=== PATIENT | female | born 1960 | race African-American/Black ===

== ENCOUNTER → 2019-06-03 18:41 | Outpatient (ROUT) | payer OTHER, SELFPAY ==
[2019-06-03 19:30] LABS: Blood Urea Nitrogen 14 mg/dL (7-17); Calcium 9.2 mg/dL (8.4-10.2); Carbon Dioxide 27 mmol/L (22-32); Chloride 107 mmol/L (98-107); Estimated Glomerular Filt Rate 56.6 mL/min (>60); Glucose 101 mg/dL (80-110); HEMOLYSIS 24 (0-50); Potassium 4.4 mmol/L (3.4-5.1); Sodium 141 mmol/L (137-145)
[2019-06-03 23:19] LABS: Free T4, Direct Thyroxine 0.51 ng/dL (0.78-2.19)
== END ==
PROVIDERS: Visit Provider Internal Medicine
DX: E03.9 Hypothyroidism, unspecified (principal); I10 Essential (primary) hypertension
CPT/HCPCS: 80048; 84439; 84443

== ENCOUNTER → 2019-09-11 15:50 | Outpatient (CLI) | payer OTHER, SELFPAY ==
[2019-09-11 17:39] LABS: TSH w/ Reflex to FT4 2.58 uIU/mL (0.47-4.68)
== END ==
PROVIDERS: PCP Internal Medicine; Referring Provider Internal Medicine; Visit Provider Internal Medicine
DX: E03.9 Hypothyroidism, unspecified (principal)
CPT/HCPCS: 36415; 84443

== ENCOUNTER → 2019-12-30 16:39 | Outpatient (CLI) | payer OTHER, MEDICAID, SELFPAY ==
--- NOTE | 2019-12-30 | DI.RAD.S_ITS ---
PROCEDURE: XR KNEE RT 1TO2V INDICATIONS: KNEE PAIN TECHNIQUE: 2 views of the knee were acquired. COMPARISON: None. FINDINGS: Bones: No fractures or dislocations. No suspicious bony lesions. Moderate to severe medial compartment osteoarthritis. Moderate lateral and patellofemoral compartment osteoarthritis. Soft tissues: Small joint effusion. No suspicious soft tissue calcifications. IMPRESSION: Tricompartmental osteoarthritis. Dictated by: Mayuri Joel MD, PhD on 12/31/2019 at 14:51 Approved by: Mayuri Joel MD, PhD on 12/31/2019 at 14:54
--- NOTE | 2019-12-30 | DI.RAD.S_ITS ---
PROCEDURE: XR KNEE LT 1TO2V INDICATIONS: KNEE PAIN TECHNIQUE: 3 views of the knee were acquired. COMPARISON: None. FINDINGS: Bones: No fractures or dislocations. No suspicious bony lesions. Moderate medial and patellofemoral compartment osteoarthritis. Mild lateral compartment osteoarthritis. Soft tissues: No joint effusion. No suspicious soft tissue calcifications. IMPRESSION: Tricompartmental osteoarthritis. Dictated by: Mayuri Joel MD, PhD on 12/31/2019 at 14:54 Approved by: Mayuri Joel MD, PhD on 12/31/2019 at 14:54
== END ==
PROVIDERS: PCP Internal Medicine; Referring Provider Internal Medicine; Visit Provider Internal Medicine
DX: M25.562 Pain in left knee (principal); M25.561 Pain in right knee; M17.0 Bilateral primary osteoarthritis of knee
CPT/HCPCS: 73560

== ENCOUNTER → 2020-06-15 16:35 | Outpatient (CLI) | payer OTHER, MEDICAID, SELFPAY ==
[2020-06-15 17:10] LABS: Uric Acid 4.6 mg/dL (2.5-6.2)
[2020-06-15 18:18] LABS: Free T4, Direct Thyroxine 0.34 ng/dL (0.78-2.19)
== END ==
PROVIDERS: PCP Internal Medicine; Referring Provider Internal Medicine; Visit Provider Internal Medicine
DX: M25.561 Pain in right knee (principal); E03.9 Hypothyroidism, unspecified
CPT/HCPCS: 36415; 84439; 84443; 84550

== ENCOUNTER → 2021-01-07 10:33 | Outpatient (CLI) | payer OTHER, MEDICAID, SELFPAY ==
--- NOTE | 2021-01-07 | DI.MG.S_ITS ---
BILATERAL DIGITAL SCREENING MAMMOGRAM 3D/2D WITH CAD: 01/07/2021 CLINICAL: Routine screening. Comparison is made to exams dated: 04/29/2017 mammogram and 12/20/2015 mammogram - [facility]. The tissue of both breasts is predominantly fatty. Current study was also evaluated with a Computer Aided Detection (CAD) system. No significant masses, calcifications, or other findings are seen in either breast. There has been no significant interval change. IMPRESSION: NEGATIVE There is no mammographic evidence of malignancy. A 1 year screening mammogram is recommended. This exam was interpreted at Station ID: [id number]. NOTE: For mammograms, a report in lay terms will be sent to the patient. Approximately 15% of breast malignancies will not be visualized mammographically. In the management of a palpable breast mass, a negative mammogram must not discourage biopsy of a clinically suspicious lesion. Electronically Signed By: Rene Stoddard M.D., jr/kobe:01/09/2021 08:10:52 letter sent: Normal Exam ACR BI-RADS Category 1: Negative [id number]
== END ==
PROVIDERS: PCP Internal Medicine; Referring Provider Internal Medicine; Visit Provider Internal Medicine
DX: Z12.31 Encounter for screening mammogram for malignant neoplasm of breast (principal)
CPT/HCPCS: 77063; 77067

== ENCOUNTER 2021-01-15 13:50 | Emergency (ER) | payer OTHER, MEDICAID, SELFPAY ==
[2021-01-15 14:16] VITALS: BP 181/78; PULSE 66; RESP 16; TEMP 36.6; O2SAT 99; BMI 50.5
--- NOTE | 2021-01-15 14:20 | DI.RAD.S_ITS ---
PROCEDURE: XR SHOULDER RT MIN 2V INDICATIONS: fall TECHNIQUE: 3 the views of the shoulder were acquired. COMPARISON: [facility], CR, XR KNEE RT 3V, 01/15/2021, 14:25. FINDINGS: Bones: No fractures or dislocations. No suspicious bony lesions. Visualized ribs appear intact. Age-appropriate bony degenerative changes are seen. Note is made of lateral downsloping of the acromion. Soft tissues: No suspicious soft tissue calcifications. The visualized lung demonstrates an unremarkable appearance. IMPRESSION: No acute abnormality is seen by plain film. Lateral downsloping of the acromion can be seen, which can predispose to impingement syndrome. If it would be helpful for clinical management decision making, please consider a dedicated, scheduled shoulder MRI for further evaluation (assuming that there is no contraindication). Dictated by: Suleman Cristobal M.D. on 01/15/2021 at 14:05 Approved by: Suleman Cristobal M.D. on 01/15/2021 at 14:06
--- NOTE | 2021-01-15 14:20 | DI.RAD.S_ITS ---
PROCEDURE: XR KNEE RT 3V INDICATIONS: fall TECHNIQUE: 3 views of the knee were acquired. COMPARISON: [facility], CR, XR KNEE LT 1TO2V, 12/30/2019, 16:35. [facility], CR, XR SHOULDER RT MIN 2V, 01/15/2021, 14:25. [facility], CR, XR KNEE RT 1TO2V, 12/30/2019, 16:35. FINDINGS: Bones: No fractures or dislocations. No suspicious bony lesions. There is moderate to severe medial femorotibial joint space narrowing seen, with associated remodeling changes including subchondral sclerosis and osteophyte formation along the jointline. On the sunrise view, there is mild lateral patellofemoral joint space narrowing seen. Osteophyte formation can be seen along the margins of the patella. Soft tissues: There is a mild joint effusion. No suspicious soft tissue calcifications. IMPRESSION: No acute plain film abnormality is seen. Small joint effusion. Degenerative changes are seen, which are worst involving the medial femorotibial compartment of the knee. If it would be helpful for clinical management decision making, please consider a dedicated, scheduled knee MRI for further evaluation (assuming that there is no contraindication). Dictated by: Suleman Cristobal M.D. on 01/15/2021 at 14:06 Approved by: Suleman Cristobal M.D. on 01/15/2021 at 14:07
--- NOTE | 2021-01-15 14:41 | ED_ITS ---
HPI - Fall <RADHA Christina - Last Filed: 01/15/21 18:57> General Chief Complaint: Fall Stated Complaint: Fell on right side, pain from shoulder to knee. Time Seen by Provider: 01/15/21 14:31 History of Present Illness HPI Narrative: 60-year-old female presents to the emergency department after tripping over a box and falling from ground level onto her left knee and left elbow presenting to the ER today with pain in her right shoulder and pain in her right knee. She states she can bear a small amount of weight on the right leg. Patient states she was at a convention in [facility] and was using a scooter to get around, she getting off of the scooter out of the left side and did not see a box on the ground, she got out and tripped over the box falling down onto her right knee and right elbow. She feels pain in her right shoulder, denies pain in her elbow, she states it is most painful with abduction and extension, denies pain with flexion, and adduction. She reports that the pain goes right through her bicep. Regarding her knee, she reports that she is bowlegged, and has known degenerative changes of both of her knees. She denies pain in her patella of her, she reports it is painful above her patella through the back of her knee. She denies any radiation, she denies any difficulty with range of motion, reports that is most painful with weight-bearing. She denies any locking or clicking since fall, she denies any popping noises when she did fall. Related Data Home Medications Medication Instructions Recorded Confirmed Carditone PO BID 12/14/20 hemp oil CBD PO 12/14/20 levothyroxine 200 mcg capsule 200 mcg PO DAILY 12/14/20 12/14/20 Previous Rx's Medication Instructions Recorded hydrocodone 5 mg-acetaminophen 325 1 tab PO BID PRN #14 tab 01/15/21 mg tablet Allergies Allergy/AdvReac Type Severity Reaction Status Date / Time morphine Allergy Intermediate Irritable Verified 01/15/21 14:59 Review of Systems <RADHA Christina - Last Filed: 01/15/21 18:57> Review of Systems Narrative: General: denies fever, chills Head/Neck: denies headache, neck pain Eyes: denies visual changes, eye pain Cardio: denies chest pain, palpitations Respiratory: denies shortness of breath, cough GI: denies abdominal pain, nausea, vomiting, or diarrhea : denies dysuria, hematuria MSK: Complains of right shoulder pain and right knee pain, muscle weakness Skin: denies rash, itching Neuro: denies numbness, tingling Patient History <RADHA Christina - Last Filed: 01/15/21 18:57> Social History Smoking Status: Former smoker Smoking Status: Former smoker Exam <RADHA Christina - Last Filed: 01/15/21 18:57> Narrative Exam Narrative: Independently reviewed vitals signs and nursing notes. General: Awake, alert, nontoxic, no cardiorespiratory distress, overweight Head/Neck: Atraumatic, neck full range of motion Eyes: EOMI, conjunctiva normal Nose: nares patent, no rhinorrhea Mouth/Throat: moist mucus membranes, posterior pharynx normal, no oral lesions Cardio: Regular rate and rhythm, no peripheral edema Respiratory: respirations unlabored without wheezing, stridor, or rales. No retractions. GI: Abdomen soft, nontender MSK: Moves all extremities, neurovascularly intact, pulses are 2+ x4 extremities, capillary refill less than 2 seconds, right shoulder is painful with abduction and extension with pain through her anterior biceps, no pain with abduction or flexion, no bony point tenderness over clavicle, acromion process, proximal humerus, or scapula on exam. Regarding her right knee, full range of motion is intact, negative anterior drawer test, negative carlos, andrew test and negative valgus and varus shift test Skin: Normal capillary refill, no rash Neuro: Normal speech and cognition, normal gait Initial Vital Signs Initial Vital Signs: Vital Signs Temperature 97.8 F 01/15/21 14:16 Pulse Rate 66 01/15/21 14:16 Respiratory Rate 16 01/15/21 14:16 Blood Pressure 181/78 H 01/15/21 14:16 Pulse Oximetry 99 01/15/21 14:16 <Ammon Botello DO - Last Filed: 01/16/21 08:35> Initial Vital Signs Initial Vital Signs: Vital Signs Temperature 97.8 F 01/15/21 14:16 Pulse Rate 66 01/15/21 14:16 Respiratory Rate 16 01/15/21 14:16 Blood Pressure 181/78 H 01/15/21 14:16 Pulse Oximetry 99 01/15/21 14:16 Course <RADHA Christina - Last Filed: 01/15/21 18:57> Orders Ordered: Discontinued Medications Hydrocodone Bitart/Acetaminophen (Hydrocodone/Acet 5/325 Tablet) 1 tab PO NOW ONE Stop: 01/15/21 14:57 Last Admin: 01/15/21 15:07 Dose: 1 tab Documented by: TORREY Hydrocodone Bitart/Acetaminophen (Hydrocodone/Acet 5/325 Tablet) 1 tab PO NOW ONE Stop: 01/15/21 16:10 Last Admin: 01/15/21 16:46 Dose: 1 tab Documented by: JANA Ketorolac Tromethamine (Ketorolac 30 Mg/Ml Vial) 30 mg IM NOW ONE Stop: 01/15/21 14:57 Last Admin: 01/15/21 15:07 Dose: 30 mg Documented by: TORREY Vital Signs Vital signs: Vital Signs - 8 hr 01/15/21 14:16 01/15/21 16:46 01/15/21 17:29 Temperature 97.8 F Pulse Rate 66 72 69 Respiratory Rate 16 20 14 Blood Pressure 181/78 H 138/63 163/71 H Pulse Oximetry 99 97 99 <Ammon Botello DO - Last Filed: 01/16/21 08:35> Orders Ordered: Discontinued Medications Hydrocodone Bitart/Acetaminophen (Hydrocodone/Acet 5/325 Tablet) 1 tab PO NOW ONE Stop: 01/15/21 14:57 Last Admin: 01/15/21 15:07 Dose: 1 tab Documented by: TORREY Hydrocodone Bitart/Acetaminophen (Hydrocodone/Acet 5/325 Tablet) 1 tab PO NOW ONE Stop: 01/15/21 16:10 Last Admin: 01/15/21 16:46 Dose: 1 tab Documented by: JANA Ketorolac Tromethamine (Ketorolac 30 Mg/Ml Vial) 30 mg IM NOW ONE Stop: 01/15/21 14:57 Last Admin: 01/15/21 15:07 Dose: 30 mg Documented by: TORREY Vital Signs Vital signs: Vital Signs - 8 hr 01/15/21 14:16 01/15/21 16:46 01/15/21 17:29 Temperature 97.8 F Pulse Rate 66 72 69 Respiratory Rate 16 20 14 Blood Pressure 181/78 H 138/63 163/71 H Pulse Oximetry 99 97 99 MDM - Fall <Leidy Read, [facility] - Last Filed: 01/15/21 18:57> Imaging Data Extremity x-ray #1: Radiologist's Impression: PROCEDURE: XR SHOULDER RT MIN 2V INDICATIONS: fall TECHNIQUE: 3 the views of the shoulder were acquired. COMPARISON: [facility], , XR KNEE RT 3V, 01/15/2021, 14:25. FINDINGS: Bones: No fractures or dislocations. No suspicious bony lesions. Visualized ribs appear intact. Age-appropriate bony degenerative changes are seen. Note is made of lateral downsloping of the acromion. Soft tissues: No suspicious soft tissue calcifications. The visualized lung demonstrates an unremarkable appearance. IMPRESSION: No acute abnormality is seen by plain film. Lateral downsloping of the acromion can be seen, which can predispose to impingement syndrome. If it would be helpful for clinical management decision making, please consider a dedicated, scheduled shoulder MRI for further evaluation (assuming that there is no contraindication). Dictated by: Suleman Cristobal M.D. on 01/15/2021 at 14:05 Approved by: Suleman Cristobal M.D. on 01/15/2021 at 14:06 Extremity x-ray #2: Radiologist's Impression: PROCEDURE: XR KNEE RT 3V INDICATIONS: fall TECHNIQUE: 3 views of the knee were acquired. COMPARISON: [facility], , XR KNEE LT 1TO2V, 12/30/2019, 16:35. [facility], , XR SHOULDER RT MIN 2V, 01/15/2021, 14:25. [facility], XR KNEE RT 1TO2V, 12/30/2019, 16:35. FINDINGS: Bones: No fractures or dislocations. No suspicious bony lesions. There is moderate to severe medial femorotibial joint space narrowing seen, with associated remodeling changes including subchondral sclerosis and osteophyte formation along the jointline. On the sunrise view, there is mild lateral patellofemoral joint space narrowing seen. Osteophyte formation can be seen along the margins of the patella. Soft tissues: There is a mild joint effusion. No suspicious soft tissue calcifications. IMPRESSION: No acute plain film abnormality is seen. Small joint effusion. Degenerative changes are seen, which are worst involving the medial femorotibial compartment of the knee. If it would be helpful for clinical management decision making, please consider a dedicated, scheduled knee MRI for further evaluation (assuming that there is no contraindication). Dictated by: Suleman Cristobal M.D. on 01/15/2021 at 14:06 Approved by: Suleman Cristobal M.D. on 01/15/2021 at 14:07 CT RLE: Radiologist's Impression: PROCEDURE: CT LE RT WO CON INDICATIONS: fall onto Rt Knee last night, unable to bear full weight TECHNIQUE: Noncontrast 1-1.5 mm axial sections acquired from the mid-patella to the proximal tibia, with coronal and sagittal reformats. COMPARISON: [facility], CR, XR KNEE RT 1TO2V, 12/30/2019, 16:35. [facility], CR, XR KNEE RT 3V, 01/15/2021, 14:25. FINDINGS: Image quality: Excellent. Bones: No acute fractures are seen. No dislocations are seen. Advanced degenerative changes are seen involving the medial femorotibial compartment, with subchondral sclerosis and subchondral cyst formation. Relatively prominent osteophyte formation can be seen medially. Milder degenerative changes are seen elsewhere. No suspicious lytic or blastic lesions are seen. Soft tissues: No significant soft tissue abnormality can be seen. There is a minimal joint effusion. IMPRESSION: No fractures or other acute abnormality can be seen. Focal prominent medial femorotibial joint space narrowing. Dictated by: Suleman Cristobal M.D. on 01/15/2021 at 14:54 Approved by: Suleman Cristobal M.D. on 01/15/2021 at 14:56 MDM Narrative Medical decision making narrative: 60-year-old female presents to the emergency department 18 hours after a ground level fall complaining of right shoulder and right knee pain. Patient has a known history bowleggedness, as well as known joint space narrowing of both of her knees. This was present on x-ray of her right knee although it looked suspicious for a fracture of the tibial plateau on my reading and based on her exam and difficulty bearing weight due to pain, a noncontrast CT scan was ordered of her right lower extremity. Results from her CT showed no fracture or acute abnormality, with focal prominent medial femoral tibial joint space narrowing, no dislocation. Her right shoulder x-ray shows no acute abnormality seen by plain film with lateral downsloping of the acromion. Because of this she was fitted in a sling and encouraged to take the sling off every couple hours and do gentle range of motion to avoid impingement syndrome, use ice for both her shoulder and her knee, and follow-up with orthopedics and her primary care provider for physical therapy. Due to her body habitus a knee immobilizer was not going to bed well so a couple large Meño wraps were used for right knee immobilization and support. Patient was able to ambulate with a walker and will take the sling home to use while sitting to help with her pain. She understands to follow-up with orthopedics & primary care, patient is appropriate and amenable to discharge home. Vital signs are stable on repeat examination is unremarkable. Patient has been informed of results. Patient has been given strict return to ER precautions for any new or worsening symptoms. Patient understands to follow up closely with outpatient providers as instructed. Patient understands plan and agrees to discharge home. All questions and concerns answered at this time. Discharge Plan Departure Patient Disposition: Home Clinical Impression: Injury of shoulder Qualifiers: Encounter type: initial encounter Laterality: right Qualified Code(s): S49.91XA - Unspecified injury of right shoulder and upper arm, initial encounter Right knee injury Qualifiers: Encounter type: initial encounter Qualified Code(s): S89.91XA - Unspecified injury of right lower leg, initial encounter Instructions: DI for AC Joint Separation Activity Restrictions/Additional Instructions: *You have been diagnosed with a possible AC separation or tear of your right shoulder, and a knee injury without fracture, with known joint space narrowing. Please use an Meño wrap to help immobilize your leg at home, use a walker to limit the amount of weight you are bearing for as long as it is painful, please follow-up with Orthopedics sometime this week for your shoulder and knee/s. Please remember to ice as much as possible, get some rest tonight you know you need it, take care of you, and take it easy. *What to do: *Please continue to take your regular medications as directed. [x ] New medication prescriptions sent to your pharmacy: [[facility] ] [ ] New medication written as a paper prescription [ ] No new medications given *Please follow up with your primary care provider in 2-3 days, call for an appointment. Let them know you were seen in the Emergency Department and that we ask that you be seen in follow up. We will electronically transmit a record of today's note if your PCP is in our system *If you do not have a primary care provider please contact the [facility] Resource line at [phone]. They will ask some questions about your medical history and help get you set up with a doctor in the community. *Return to Emergency Department if you should have any new, worsening or concerning symptoms, such as [fever greater than 101F, chills, worsening pain, persistent vomiting or other bothersome symptoms] Prescriptions: New hydrocodone-acetaminophen 5-325 mg tablet 1 tab PO BID PRN (Reason: pain) Qty: 14 RF: 0 No Action levothyroxine 200 mcg capsule 200 mcg PO DAILY RF: 0 Carditone PO BID RF: 0 hemp oil CBD PO RF: 0 Referrals: Aston Basilio MD [Physician] - 5-7 days Symone Coon MD [Primary Care Provider] - <Ammon Botello DO - Last Filed: 01/16/21 08:35> [facility]: I was immediately available in the department for consultation. This documentation has been reviewed and I agree with assessment and plan. Supervised by Ammon Botello DO
[2021-01-15] MEDS: HYDROCODONE/ACET 5/325 TABLET 1 TAB PO ×2 (15:07→16:46)
[2021-01-15] MEDS: KETOROLAC 30 MG/ML VIAL IM (15:07)
--- NOTE | 2021-01-15 15:14 | DI.CT.S_ITS ---
PROCEDURE: CT LE RT WO CON INDICATIONS: fall onto Rt Knee last night, unable to bear full weight TECHNIQUE: Noncontrast 1-1.5 mm axial sections acquired from the mid-patella to the proximal tibia, with coronal and sagittal reformats. COMPARISON: [facility], CR, XR KNEE RT 1TO2V, 12/30/2019, 16:35. [facility], CR, XR KNEE RT 3V, 01/15/2021, 14:25. FINDINGS: Image quality: Excellent. Bones: No acute fractures are seen. No dislocations are seen. Advanced degenerative changes are seen involving the medial femorotibial compartment, with subchondral sclerosis and subchondral cyst formation. Relatively prominent osteophyte formation can be seen medially. Milder degenerative changes are seen elsewhere. No suspicious lytic or blastic lesions are seen. Soft tissues: No significant soft tissue abnormality can be seen. There is a minimal joint effusion. IMPRESSION: No fractures or other acute abnormality can be seen. Focal prominent medial femorotibial joint space narrowing. Dictated by: Suleman Cristobal M.D. on 01/15/2021 at 14:54 Approved by: Suleman Cristobal M.D. on 01/15/2021 at 14:56
[2021-01-15 16:46] VITALS: BP 138/63; PULSE 72; RESP 20; O2SAT 97
[2021-01-15 17:29] VITALS: BP 163/71; PULSE 69; RESP 14; O2SAT 99
== END 2021-01-15 17:30 | disposition home or self-care (01) ==
PROVIDERS: Emergency Provider Nurse Practitioner Critical Care Medicine; PCP Internal Medicine
DX: S49.91XA Unspecified injury of right shoulder and upper arm, initial encounter (principal); S89.91XA Unspecified injury of right lower leg, initial encounter; W19.XXXA Unspecified fall, initial encounter
CPT/HCPCS: 73030; 73562; 73700; 96372; 99284; J1885

== ENCOUNTER → 2023-10-25 10:18 | Outpatient (CLI) | payer OTHER, MEDICAID, SELFPAY ==
--- NOTE | 2023-10-25 10:21 | DI.RAD.S_ITS ---
PROCEDURE: XR DEXA AXIAL SKELETON INDICATIONS: SCREENING FOR OSTEOPOROSIS COMPARISON: None. FINDINGS: Lumbar Spine: Bone mineral density 1.14 g/cm2, T score 0.8,. Left Hip: Bone mineral density 1.0 g/cm2, T score 0.5,. Left Femoral Neck: Bone mineral density 0.76 g/cm2, T score -0.8,. Right Hip: Bone mineral density 1.0 g/cm2, T score 0.6,. Right Femoral Neck: Bone mineral density 0.84 g/cm2, T score -0.1,. Fracture Risk Calculation (when applicable): 10-year fracture risk of a major osteoporotic fracture 6.5 % and of a hip fracture 0.3%. (T score greater or equal to -1.0 to: NORMAL) (T score from -1.1 to -2.4: OSTEOPENIA) (T score less than or equal to -2.5: OSTEOPOROSIS) IMPRESSION: T-scores are within normal limits. FRAX fracture risk calculation as above. Follow-up guidelines as follows: Osteoporosis: Consider a repeat DEXA and Vertebral Fracture Assessment (VFA) exam in 2 years or sooner if medically necessary, to reassess this patient's status. Osteopenia: Consider a repeat DEXA in 2-3 years to reassess this patient's status, or if there is a new clinical indication. Normal: Consider a repeat DEXA in 5 years or sooner, or if there is a new clinical indication. All treatment decisions require clinical judgment and consideration of individual patient factors, including patient preferences, comorbidities, previous drug use, risk factors not captured in the FRAX model (e.g., frailty, falls, vitamin D deficiency, increased bone turnover, interval significant decline in bone density ) and possible under- or over-estimation of fracture risk by FRAX. In addition, the NOF Guide recommends that FDA-approved medical therapies be considered in postmenopausal women and men age >= 50 years with a: * Hip or vertebral (clinical or morphometric) fracture * T-score of <=-2.5 at the spine or hip * Ten-year fracture probability by FRAX of >= 3% for hip fracture or >=20% for major osteoporotic fracture. People with diagnosed cases of osteoporosis or at high risk for fracture should have regular bone mineral density tests. For patients eligible for Medicare, routine testing is allowed once every 2 years. The testing frequency can be increased to one year for patients who have rapidly progressing disease, those who are receiving or discontinuing medical therapy to restore bone mass, or have additional risk factors. Dictated by: Preston Wilde M.D. on 10/25/2023 at 22:45 Approved by: Preston Wilde M.D. on 10/25/2023 at 22:47
--- NOTE | 2023-10-25 10:22 | DI.MG.S_ITS ---
BILATERAL DIGITAL SCREENING MAMMOGRAM 3D/2D WITH CAD: 10/25/2023 CLINICAL: Routine screening. Comparison is made to exams dated: 01/07/2021 mammogram - [facility] and 04/29/2017 mammogram - [facility]. Both breasts are almost entirely fatty (category a/<25% glandular tissue). Current study was also evaluated with a Computer Aided Detection (CAD) system. No significant masses, calcifications, or other findings are seen in either breast. There has been no significant interval change. IMPRESSION: NEGATIVE There is no mammographic evidence of malignancy. A 1 year screening mammogram is recommended. Based on the Tyrer Cuzick model (a risk assessment model) the patient's lifetime risk is 3.5% and her 10 year risk is 1.6%. According to the ACR, ACS, and NCCN guidelines, an annual breast MRI exam along with mammogram is recommended if the patient's lifetime risk is 20% or greater. This exam was interpreted at Station ID: [id number]. NOTE: For mammograms, a report in lay terms will be sent to the patient. Approximately 15% of breast malignancies will not be visualized mammographically. In the management of a palpable breast mass, a negative mammogram must not discourage biopsy of a clinically suspicious lesion. Electronically Signed By: Oumar clayton/kobe:10/25/2023 13:34:58 letter sent: Normal Exam ACR BI-RADS Category 1: Negative [id number]
== END ==
LOC: RAD 10:18
PROVIDERS: PCP Physician Assistant; Referring Provider Physician Assistant; Visit Provider Physician Assistant
DX: Z78.0 Asymptomatic menopausal state (principal); Z12.31 Encounter for screening mammogram for malignant neoplasm of breast; R92.313 Mammographic fatty tissue density, bilateral breasts
CPT/HCPCS: 77063; 77067; 77080